=== PATIENT | male | born 1955 | race Caucasian/White ===

== ENCOUNTER 2020-02-12 09:16 | Day surgery (SDC) | payer OTHER ==
[~2020-02-12] VITALS: Ht 177.8 cm; Wt 101.9 kg
[~2020-02-12 09:16] MED LIST: LIDOCAINE/PF 1%-EPI 1:200K, 30 ML ONE; ROPIvacaine/PF 0.5%, 30 ML ONE
[2020-02-12] MEDS ORDERED: LACTATED RINGERS 1,000 ML IV SCH (09:45)
[2020-02-12] MEDS ORDERED: CHLORHEXIDINE 15 ML UDC MM ONE (10:00)
[2020-02-12] MEDS ORDERED: PLEASE ENTER ALLERGIES MC SCH (10:00)
[2020-02-12] MEDS ORDERED: FENTANYL PF 250 MCG/5ML ONE (10:07)
[2020-02-12] MEDS ORDERED: MIDAZOLAM 1 MG/ML, 2ML ONE (10:07)
[2020-02-12] MEDS ORDERED: PROPOFOL 10 MG/ML, 20ML ONE (10:08)
[2020-02-12] MEDS ORDERED: CEFAZOLIN 1,000 MG ONE (10:08)
[2020-02-12] MEDS ORDERED: LISI30TA4 PO (10:17)
[2020-02-12] MEDS ORDERED: METF500T17 PO (10:17)
[2020-02-12] MEDS ORDERED: [UNRECOGNIZED DRUG - OTHER] PO (10:17)
[2020-02-12 10:35] VITALS: BP 129/84
[2020-02-12 10:55] LABS: ALBUMIN 3.6 g/dL (3.4-5.0); ANION GAP 6 mmol/L (5-15); CALCIUM 8.9 mg/dL (8.5-10.1); CHLORIDE 104 mmol/L (98-107)
[2020-02-12 11:03] LABS: ALANINE AMINOTRANSFERASE 44 U/L (12-78); ALKALINE PHOSPHATASE 81 U/L (45-117); BILIRUBIN,TOTAL 0.6 mg/dL (0.2-1.0); CREATININE 0.99 mg/dL (0.7-1.3); TOTAL PROTEIN 7.3 g/dL (6.4-8.2)
[2020-02-12] MEDS ORDERED: PHENYLEPHRINE 10 MG/ML ONE (11:12)
[2020-02-12] MEDS ORDERED: HYDROmorphone 1 MG/ML, 1ML INJ IVPush PRN (11:30)
[2020-02-12] MEDS ORDERED: FENTANYL PF 100 MCG/2ML IV PRN (11:30)
[2020-02-12] MEDS ORDERED: morphine SULFATE 10 MG/ML, 1ML IVPush PRN (11:30)
[2020-02-12] MEDS ORDERED: ONDANSETRON 2MG/ML, 2ML IVPush PRN (11:30)
[2020-02-12] MEDS ORDERED: MEPERIDINE/PF 25MG/0.5ML IVPush PRN (11:30)
[2020-02-12] MEDS ORDERED: OXYcodone 5 MG/5 ML ORAL.SOL UDC PO PRN (11:30)
[2020-02-12] MEDS ORDERED: KETOROLAC 30 MG/1 ML ONE (11:36)
[2020-02-12] MEDS: ACETAMINOPHEN 325 MG TABLET PO PRN ×2 (12:30→13:15)
[2020-02-12] MEDS ORDERED: ACETAMINOPHEN 325 MG TABLET ONE (12:31)
[2020-02-12] MEDS ORDERED: ACETAMINOPHEN 650 MG/20.3 ML UDC ONE (12:31)
[2020-02-12] MEDS ORDERED: HYDROcodone/APAP 5/325 TABLET PO PRN (13:30)
[2020-02-12] MEDS ORDERED: HYDROcodone/APAP 5/325 TABLET ONE (13:33)
== END 2020-02-12 14:25 | disposition home or self-care (01) ==
LOC: OUT 09:16
PROVIDERS: ATTEND Orthopaedic Surgery
DX: S83.232A Complex tear of medial meniscus, current injury, left knee, initial encounter (principal); S83.282A Other tear of lateral meniscus, current injury, left knee, initial encounter; M22.42 Chondromalacia patellae, left knee; M11.262 Other chondrocalcinosis, left knee; I10 Essential (primary) hypertension; E11.9 Type 2 diabetes mellitus without complications; E78.5 Hyperlipidemia, unspecified; Z79.84 Long term (current) use of oral hypoglycemic drugs; Z79.899 Other long term (current) drug therapy; X58.XXXA Exposure to other specified factors, initial encounter; Y93.89 Activity, other specified; Y92.89 Other specified places as the place of occurrence of the external cause; Y99.8 Other external cause status
CPT/HCPCS: 29880; 80053; 82962; 93005; J0690; J2250; J2370; J2704; J2795; J3010; J3490; J7120; J1885